=== PATIENT | female | born 1975 | race Caucasian/White ===

== ENCOUNTER 2017-01-06 18:30 | Emergency (ER) | payer SELFPAY ==
[~2017-01-06] VITALS: Ht 152.4 cm; Wt 47.6 kg
--- NOTE | 2017-01-06 19:04 | ED.ADGEN ---
Adult General HPI HPI Patient is a 41-year-old woman, with a history of mitral valve prolapse, palpitations, who presents to the emergency department with complaint of palpitations, generalized weakness, near-syncope, chest pressure intermittently over the past week and half. Patient states that she was last seen by her new grad rn about 4 years ago. She states she is prescribed propranolol, and told to take it up to 3 times daily if needed for her symptoms. She states that she has not been taking his medication regularly the last time she filled the prescription was in . She she did take some of her medication yesterday without relief. Patient states that she is expressing lightheadedness and dizziness with standing and with activity, states she is experiencing chest pressure, and a tingling sensation that extends into her arms and into her fingers at times. Some nausea as well, denies any vomiting, abdominal pain, any shortness of breath, states she has had diaphoresis, no belching, no focal weakness, numbness or tingling, no recent travel or surgery, no history of DVT or PE. Patient is a strong family history of valvular issues and of cardiac disease, states that both her mother, grandmother, and sister had valvular issues, and her mother and grandmother both experienced myocardial infarctions in their 40s. Her grandmother at age 50 of an PA. She does not currently have a primary care provider or a new grad rn, does not take any medications on a regular basis. Review of Systems Review of Systems Constitutional: Denies fever or chills [] analyzed weakness. Near-syncope. Eyes: Denies change in visual acuity, redness, or eye pain [] HENT: Denies nasal congestion or sore throat [] Respiratory: Denies cough or shortness of breath [] Cardiovascular: Chest pressure, radiating into her arms, associated with tingling, nausea. GI: Denies abdominal pain, nausea, vomiting, bloody stools or diarrhea [] : Denies dysuria or hematuria [] Musculoskeletal: Denies back pain or joint pain [] Integument: Denies rash or skin lesions [] Neurologic: Denies headache, focal weakness or sensory changes [] Endocrine: Denies polyuria or polydipsia [] Current Medications Current Medications Current Medications Medications (Trade) Dose Ordered Sig/Regine Start Time Stop Time Status Last Admin Dose Admin Aspirin (Tara Aspirin) 325 mg 1X ONCE 7/12/17 19:15 01/06/17 19:16 DC 01/06/17 19:15 325 MG Fentanyl Citrate (Fentanyl 2ml Vial) 25 mcg PRN Q15MIN PRN 01/06/17 19:00 01/07/17 18:59 01/06/17 20:03 25 MCG Ondansetron HCl (Zofran) 4 mg 1X ONCE 01/06/17 20:15 01/06/17 20:16 DC 01/06/17 20:15 4 MG Allergies Allergies Allergies Coded Allergies Type Severity Reaction Last Updated Verified No Known Drug Allergies 01/06/17 No Physical Exam Physical Exam Constitutional: Well developed, well nourished, no acute distress, non-toxic appearance. [] HENT: Normocephalic, atraumatic, bilateral external ears normal, oropharynx moist, no oral exudates, nose normal. [] Eyes: PERRLA, EOMI, conjunctiva normal, no discharge. [] Neck: Normal range of motion, no tenderness, supple, no stridor. [] Cardiovascular:Heart rate regular rhythm, 2 out of 5 murmur, no rubs, no gallops. S1, S2. Lungs & Thorax: Bilateral breath sounds clear to auscultation, no wheezing, rhonchi, rales. No chest or crepitus or tenderness. Unable to reproduce symptoms with palpation. [] Abdomen: Bowel sounds normal, soft, no tenderness, no rebound, rigidity, no guarding, no masses, no pulsatile masses. [] Skin: Warm, dry, no erythema, no rash. [] Back: No tenderness, no CVA tenderness. [] Extremities: No tenderness, no cyanosis, no clubbing, ROM intact, no edema. Negative Homans sign. [] Neurologic: Alert and oriented X 3, normal motor function, normal sensory function, no focal deficits noted. [] Psychologic: Affect normal, judgement normal, mood normal. [] Current Patient Data Vital Signs Vital Signs Date Time Temp Pulse Resp B/P (MAP) Pulse Ox O2 Delivery O2 Flow Rate FiO2 01/06/17 20:03 16 95 Room Air 01/06/17 18:40 98.1 69 Lab Results Laboratory Tests Test 01/06/17 18:45 01/06/17 20:30 White Blood Count 7.4 x10^3/uL (4.0-11.0) Red Blood Count 4.17 x10^6/uL (3.50-5.40) Hemoglobin 13.1 g/dL (12.0-15.5) Hematocrit 38.8 % (36.0-47.0) Mean Corpuscular Volume 93 fL (79-100) Mean Corpuscular Hemoglobin 31 pg (25-35) Mean Corpuscular Hemoglobin Concent 34 g/dL (31-37) Red Cell Distribution Width 12.8 % (11.5-14.5) Platelet Count 251 x10^3/uL (140-400) Neutrophils (%) (Auto) 55 % (31-73) Lymphocytes (%) (Auto) 33 % (24-48) Monocytes (%) (Auto) 9 % (0-9) Eosinophils (%) (Auto) 3 % (0-3) Basophils (%) (Auto) 1 % (0-3) Neutrophils # (Auto) 4.0 x10^3uL (1.8-7.7) Lymphocytes # (Auto) 2.4 x10^3/uL (1.0-4.8) Monocytes # (Auto) 0.7 x10^3/uL (0.0-1.1) Eosinophils # (Auto) 0.2 x10^3/uL (0.0-0.7) Basophils # (Auto) 0.1 x10^3/uL (0.0-0.2) Sodium Level 140 mmol/L (136-145) Potassium Level 3.7 mmol/L (3.5-5.1) Chloride Level 103 mmol/L (98-107) Carbon Dioxide Level 35 mmol/L (21-32) H Anion Gap 2 (6-14) L Blood Urea Nitrogen 12 mg/dL (7-20) Creatinine 0.8 mg/dL (0.6-1.0) Estimated GFR (Cockcroft-Gault) 78.7 BUN/Creatinine Ratio 15 (6-20) Glucose Level 70 mg/dL (70-99) Calcium Level 8.8 mg/dL (8.5-10.1) Magnesium Level 2.0 mg/dL (1.8-2.4) Total Bilirubin 0.4 mg/dL (0.2-1.0) Aspartate Amino Transferase (AST) 16 U/L (15-37) Alanine Aminotransferase (ALT) 22 U/L (14-59) Alkaline Phosphatase 68 U/L (46-116) Troponin I Quantitative < 0.017 ng/mL (0-0.055) EX-Rqo-B-Type Natriuretic Peptide 13 pg/mL (0-124) Total Protein 7.1 g/dL (6.4-8.2) Albumin 3.6 g/dL (3.4-5.0) Albumin/Globulin Ratio 1.0 (1.0-1.7) Lipase 157 U/L (73-393) Urine Collection Type Unknown Urine Color Yellow Urine Clarity Hazy Urine pH 6.5 Urine Specific [place] 1.015 Urine Protein Neg (NEG-TRACE) Urine Glucose (UA) Neg mg/dL (NEG) Urine Ketones (Stick) Neg mg/dL (NEG) Urine Blood Trace (NEG) Urine Nitrite Neg (NEG) Urine Bilirubin Neg (NEG) Urine Urobilinogen Dipstick 0.2 mg/dL (0.2 mg/dL) Urine Leukocyte Esterase Neg (NEG) Urine RBC 1-2 /HPF (0-2) Urine WBC 1-4 /HPF (0-4) Urine Squamous Epithelial Cells Many /LPF Urine Bacteria Few /HPF (0-FEW) Urine Mucus Mod /LPF Urine Opiates Screen Neg (NEG) Urine Methadone Screen Neg (NEG) Urine Barbiturates Neg (NEG) Urine Phencyclidine Screen Neg (NEG) Urine Amphetamine/Methamphetamine Neg (NEG) Urine Benzodiazepines Screen Neg (NEG) Urine Cocaine Screen Neg (NEG) Urine Cannabinoids Screen Neg (NEG) Urine Ethyl Alcohol Neg (NEG) EKG EKG EC: Sinus rhythm, heart rate 61 bpm, upright axis, QTC of 382, MA 172, QRS of 80, no ST elevations or depressions, noted acute ST abnormalities. No prior for comparison. As interpreted by me. ECG: Sinus rhythm, heart rate 51 beats minute, upright axis, QTC of 409, MA of 182, QRS of 84, patient noted to have ST elevations of possible 1 mm noted in lead 2, otherwise no changes noted from patient's previous ECG, patient experienced any chest pain at this time, complaining of nausea abnormal ECG, does not meet STEMI criteria. As interpreted by me. [] Radiology/Procedures Radiology/Procedures Chest x-ray: One view: Patient with normal cardiopulmonary silhouette, no infiltrates, no effusions, no pneumothorax, no soft tissue or bony abnormalities identified. As interpreted by me. [] Course & Med Decision Making Course & Med Decision Making Pertinent Labs and Imaging studies reviewed. (See chart for details) Patient not experiencing palpitations at time of evaluation the ED, states the chest pressure and lightheadedness, have significantly improved, no pain at this time. Aspirin 325 milligrams administered without issue. Initial ECG is unremarkable, patient developed episode of sweating in the ED, with some lightheadedness, repeat ECG revised reveals mild elevations in lead 2, no other changes. Troponin is negative, laboratory studies reveal no concerning findings. Findings as above discussed with JAIR Shah, on-call for Dr. Meng cardiology, in light of the patient's history, and concerning family history for significant CAD and fell to the issues, transfer to [facility] is appropriate versus staying at [facility] due to resources available at [facility]. I did discuss this with patient and at bedside, patient is agreeable for transfer to [facility] for additional evaluation with cardiology team. Transfer paperwork was completed. Patient accepted to the service of Dr. Macias of internal medicine as a full admission, patient remained stable on the monitor in sinus rhythm, comfortable, awaiting transfer. Final Impression Final Impression [] Problems: Dragon Disclaimer Dragon Disclaimer This electronic medical record was generated, in whole or in part, using a voice recognition dictation system. Departure: Impression: Primary Impression: Heart palpitations Additional Impression: Chest pain Disposition: XFER OTHER Condition: STABLE GURMEET WHITMAN DO Jan 06, 2017 19:04
[2017-01-06] MEDS: fentaNYL PF 100 MCG/2 ML VIAL IV PRN ×2 (19:10→20:03)
[2017-01-06 19:15] LABS: BASO # 0.1 x10^3/uL (0.0-0.2); BASO % 1 % (0-3); EOS # 0.2 x10^3/uL (0.0-0.7); EOS % 3 % (0-3); HEMATOCRIT 38.8 % (36.0-47.0); HEMOGLOBIN 13.1 g/dL (12.0-15.5); LYMPH # 2.4 x10^3/uL (1.0-4.8); LYMPH % 33 % (24-48); MEAN CORPUSCULAR HEMOGLOBIN 31 pg (25-35); MEAN CORPUSCULAR HGB CONC 34 g/dL (31-37); MEAN CORPUSCULAR VOLUME 93 fL (79-100); MONO # 0.7 x10^3/uL (0.0-1.1); MONO % 9 % (0-9); NEUT % 55 % (31-73); PLATELET COUNT 251 x10^3/uL (140-400); RED BLOOD COUNT 4.17 x10^6/uL (3.50-5.40); RED CELL DISTRIBUTION WIDTH 12.8 % (11.5-14.5); WHITE BLOOD COUNT 7.4 x10^3/uL (4.0-11.0)
[2017-01-06] MEDS ORDERED: ASPIRIN 325 MG TABLET PO ONE (19:15)
[2017-01-06] MEDS ORDERED: ONDANSETRON PF 4 MG/2 ML VIAL. IV ONE ×3 (19:15→23:45)
[2017-01-06 19:26] LABS: ALBUMIN 3.6 g/dL (3.4-5.0); CALCIUM 8.8 mg/dL (8.5-10.1); CREATININE 0.8 mg/dL (0.6-1.0); GFR 78.7; POTASSIUM 3.7 mmol/L (3.5-5.1); TOTAL BILIRUBIN 0.4 mg/dL (0.2-1.0); TOTAL PROTEIN 7.1 g/dL (6.4-8.2)
[2017-01-06 20:50] LABS: AMPHETAMINE/METHAMPHETAMINE NEG (NEG); BARBITURATES NEG (NEG); BENZODIAZEPINES NEG (NEG); CANNABINOIDS NEG (NEG); COCAINE NEG (NEG); METHADONE NEG (NEG); OPIATES NEG (NEG); PHENCYCLIDINE NEG (NEG)
[2017-01-06 20:59] LABS: BILIRUBIN,URINE NEG (NEG); CLARITY,URINE HAZY; COLOR,URINE YELLOW; GLUCOSE,URINE NEG (NEG); NITRITE,URINE NEG (NEG); UROBILINOGEN,URINE 0.2 mg/dL (0.2 mg/dL)
[2017-01-06 21:00] LABS: BACTERIA,URINE FEW /HPF (0-FEW); SQUAMOUS EPITHELIAL CELL,UR MANY /LPF
[2017-01-06 22:12] VITALS: BP 112/68
--- NOTE | 2017-01-06 22:49 | EKG ---
[address] [address] Test Date: 2017-01-06 Test Time: 18:42:41 Pat Name: SIVA FONG Department: Room: Gender: F Automation Manager: : 1975 Requested By: GURMEET WHITMAN Order Number: [id number] Reading MD: Measurements Intervals [place] Rate: 61 P: 58 [place]: 172 QRS: 41 QRSD: 80 T: 31 QT: 378 QTc: 382 Interpretive Statements SINUS RHYTHM NORMAL ECG RI6.01 Unconfirmed report No previous ECG available for comparison
--- NOTE | 2017-01-06 22:49 | EKG ---
[facility] ED [facility] [address] [place] [address] Test Date: 2017-01-06 Test Time: 19:58:27 Pat Name: SIVA FONG Department: Room: Gender: F Contact Center Engineer: : 1975 Requested By: GURMEET WHITMAN Order Number: [id number] Reading MD: Measurements Intervals [place] Rate: 51 P: 53 [place]: 182 QRS: 51 QRSD: 84 T: 34 QT: 442 QTc: 409 Interpretive Statements SINUS RHYTHM NON SPECIFIC ST-T ABNORMALITY (ELEVATION) OTHERWISE NORMAL ECG RI6.01 Unconfirmed report No previous ECG available for comparison
--- NOTE | 2017-01-07 08:02 | RAD ---
Chest radiograph 01/06/2017 at 1909 hours Indication: Heart palpitations Comparison: None available Technique: Portable upright view of the chest is provided. Findings: Cardiomediastinal silhouette is within normal limits. No pleural effusions, pulmonary vascular congestion or pneumothorax. The lungs are clear. Osseous structures are normal. Cholecystectomy clips are identified in the right upper quadrant. Impression: No acute cardiopulmonary process.
== END 2017-01-06 23:35 | disposition short-term general hospital (02) ==
LOC: ER 18:30
DX: R07.89 Other chest pain (principal); R00.2 Palpitations; I34.1 Nonrheumatic mitral (valve) prolapse
CPT/HCPCS: 36415; 71010; 80053; 80305; 80320; 81001; 83690; 83735; 83880; 84443; 84484; 85027; 93005; 96374; 96375; 96376; 99285; J2405; J3010; G0481

== ENCOUNTER 2021-01-03 03:56 | Observation (INO) | payer OTHER ==
[~2021-01-03] VITALS: Ht 152.4 cm; Wt 48.0 kg
--- NOTE | 2021-01-03 04:10 | PHYS DOC ---
Past History Past Medical History: Other Past Surgical History: Cholecystectomy, Tubal ligation Alcohol Use: None Drug Use: None General Adult HPI: HPI: ".. I went to bed fine.. but I got up about 3 to go to the bathroom.. and I felt like my hands were numb.. my mouth was numb.. and I got concerned.. I was to see Dr. El.. the next couple days ...because it feels like my feet have been swellling.." Patient is a 45 year old female who presents with above hx and complaints numbness of mouth in both hands and swelling in both feet. Patient states has had symptoms for last couple days, but symptoms seem worse tonight when she got up to go the bathroom. No recent travel. Patient is not smoke. Patient denies any illicit drug use. Patient does have history of aortic and mitral valve prolapse. Has seen hand decorator in the past. But does not remember his name. Patient follows with Dr. El. No history of trauma. No history of immunosuppression. Review of Systems: Review of Systems: Constitutional: Denies fever or chills Eyes: Denies change in visual acuity HENT: Complains of melena Respiratory: Denies cough or shortness of breath Cardiovascular: Planes of chest discomfort in bilateral feet edema GI: Denies abdominal pain, nausea, vomiting, bloody stools or diarrhea : Denies dysuria Musculoskeletal: Denies back pain or joint pain Integument: Denies rash Neurologic: Complains of mild headache, and bilateral hand numbness Endocrine: Denies polyuria or polydipsia Lymphatic: Denies swollen glands Psychiatric: Denies depression or anxiety Family History: Family History: Noncontributory presentation Current Medications: Current Meds: See nursing for home meds Allergies: Allergies: Allergies Coded Allergies Type Severity Reaction Last Updated Verified No Known Drug Allergies 01/06/17 No Physical Exam: PE: Constitutional: moderate acute distress, non-toxic appearance. [] HENT: Normocephalic, atraumatic, bilateral external ears normal, oropharynx moist, no oral exudates, nose normal. [] Eyes: PERRLA, EOMI, conjunctiva normal, no discharge. [] Neck: Normal range of motion, no tenderness, supple, no stridor. No bruits appreciated Cardiovascular:Heart rate regular rhythm. Aortic and mitral flow murmur [] Lungs & Thorax: Bilateral breath sounds equal at apex auscultation [] Abdomen: Bowel sounds normal, soft, no tenderness, no masses, no pulsatile masses. [] Skin: Warm, dry, no erythema, no rash. Tattoos Back: No tenderness, no CVA tenderness. [] Extremities: No tenderness, no cyanosis, no clubbing, ROM intact, no edema. [] Neurologic: Alert and oriented X 3, normal motor function, normal sensory function, no focal deficits noted. [] DTRs +2 patella brachial. Food Checker equal. No drift. Psychologic: Affect anxious, judgement normal, mood normal. [] Current Patient Data: Labs: Laboratory Tests Test 01/03/21 04:03 Glucose (Fingerstick) 113 mg/dL (70-99) H EKG: EKG: My interpretation EKG shows a sinus rhythm at 69 bpm. No findings acute STEMI of contralateral changes. Time of EKGs for [] Radiology/Procedures: Radiology/Procedures: [][address] [address] IMAGING REPORT Signed PATIENT: SIVA FONG ACCOUNT: [id number] : 1975 LOCATION: [address] [place] [address] AGE: 45 SEX: F EXAM STATUS: ADM IN ORD. PHYSICIAN: BRANDON QUEVEDO MD REASON: cp PROCEDURE: PORTABLE CHEST 1V EXAM: CHEST 1 VIEW History: Chest pain COMPARISON: None available. TECHNIQUE: Single portable radiograph of the chest FINDINGS: The cardiac silhouette is unremarkable. The lungs are clear bilaterally. The costophrenic sulci are clear and well demarcated. IMPRESSION: No radiographic evidence of an acute cardiopulmonary process. Electronically signed by: Jae Azul MD (01/03/2021 6:16 AM) [id number] DICTATED AND SIGNED BY: JAE AZUL MD DATE: 01/03/21 0616 CC: VIJI EL MD; BRANDON QUEVEDO MD ~MTH0 0 IMAGING REPORT Signed PATIENT: SIVA FONG ACCOUNT: [id number] : 1975 LOCATION: ER AGE: 45 SEX: F EXAM STATUS: REG ER ORD. PHYSICIAN: BRANDON QUEVEDO MD REASON: numbness hands, mouth numb PROCEDURE: CT HEAD WO CONTRAST CT HEAD INDICATION: Numbness: COMPARISON: None Available. Exposure: One or more of the following individualized dose reduction techniques were utilized for this examination: 1. Automated exposure control 2. Adjustment of the mA and/or kV according to patient size 3. Use of iterative reconstruction technique TECHNIQUE: 5 mm contiguous axial images were obtained from the skull base to the vertex in both bone and soft tissue algorithm. FINDINGS: No abnormal attenuation within the brain parenchyma. No evidence of acute intracranial hemorrhage. No extra-axial fluid collections. No mass effect or midline shift. Ventricular size is appropriate. Basal cis terns are patent. No fractures identified.Dockery-white differentiation is preserved.Globes and orbits are within normal limits. Paranasal sinuses and mastoid air cells are clear. IMPRESSION: Unremarkable CT examination of the head without contrast, as above. Specifically, no evidence of an acute intracranial abnormality. Electronically signed by: Jae Azul MD (01/03/2021 5:15 AM) [id number] DICTATED AND SIGNED BY: JAE AZUL MD DATE: 01/03/21511 CC: VIJI EL MD; BRANODN QUEVEDO MD ~MTH0 0 Heart Score: C/O Chest Pain: Yes HEART Score for Chest Pain: HEART Score for Chest Pain Response (Comments) Value History Slighlty/Non-Suspicious 0 ECG Normal 0 Age >45 - < 65 1 Troponin < Normal Limit 0 Total 1 Risk Factors: Risk Factors: DM, Current or recent (<one month) smoker, HTN, HLP, family history of CAD, obesity. Risk Scores: Score 0 - 3: 2.5% MACE over next 6 weeks - Discharge Home Score 4 - 6: 20.3% MACE over next 6 weeks - Admit for Clinical Observation Score 7 - 10: 72.7% MACE over next 6 weeks - Early Invasive Strategies Course & Med Decision Making: Course & Med Decision Making Pertinent Labs and Imaging studies reviewed. (See chart for details) Discussed presentation, testing and t.x plan with Dr. El. Impression: 1. Numbness mouth and hands 2. Dizziness 3. Murmur mitral and aorta [] Dragon Disclaimer: Dragon Disclaimer: This electronic medical record was generated, in whole or in part, using a voice recognition dictation system. Departure Departure: Referrals: VIJI EL MD (PCP) BRANDON QUEVEDO MD Jan 03, 2021 04:10
[2021-01-03] MEDS ORDERED: IV RINGERS SOLUTION,LACTATED 1,000 ML IV SCH (04:30)
[2021-01-03 04:39] LABS: BASO # 0.1 x10^3/uL (0.0-0.2); BASO % 1 % (0-3); EOS # 0.1 x10^3/uL (0.0-0.7); EOS % 3 % (0-3); HEMATOCRIT 40.7 % (36.0-47.0); HEMOGLOBIN 13.8 g/dL (12.0-15.5); LYMPH # 2.5 x10^3/uL (1.0-4.8); LYMPH % 49 % (24-48); MEAN CORPUSCULAR HEMOGLOBIN 32 pg (25-35); MEAN CORPUSCULAR HGB CONC 34 g/dL (31-37); MEAN CORPUSCULAR VOLUME 95 fL (79-100); MONO # 0.4 x10^3/uL (0.0-1.1); MONO % 8 % (0-9); NEUT # 2.1 x10^3uL (1.8-7.7); NEUT % 40 % (31-73); PLATELET COUNT 289 x10^3/uL (140-400); RED BLOOD COUNT 4.31 x10^6/uL (3.50-5.40); RED CELL DISTRIBUTION WIDTH 13.1 % (11.5-14.5); WHITE BLOOD COUNT 5.2 x10^3/uL (4.0-11.0)
[2021-01-03 04:43] LABS: CALCIUM 9.1 mg/dL (8.5-10.1); CREATININE 0.8 mg/dL (0.6-1.0); GFR 77.2
[2021-01-03 04:56] LABS: ALBUMIN 4.2 g/dL (3.4-5.0); DIRECT BILIRUBIN 0.2 mg/dL (0.0-0.2); MAGNESIUM 1.9 mg/dL (1.8-2.4); TOTAL BILIRUBIN 0.9 mg/dL (0.2-1.0); TOTAL PROTEIN 6.8 g/dL (6.4-8.2)
--- NOTE | 2021-01-03 05:17 | RAD ---
CT HEAD INDICATION: Numbness: COMPARISON: None Available. Exposure: One or more of the following individualized dose reduction techniques were utilized for thi s examination: 1. Automated exposure control 2. Adjustment of the mA and/or kV according to patient size 3. Use of iterative reconstruction technique TECHNIQUE: 5 mm contiguous axial images were obtained from the skull base to the vertex in both bone and soft tissue algorithm. FINDINGS: No abnormal attenuation within the brain parenchyma. No evidence of acute intracranial hemorrhage. No extra-axial fluid collections. No mass effect or midline shift. Ventricular size is appropriate. Basal cisterns are patent. No fractures identified.Dockery-white differentiation is preserved.Globes and orbits are within normal l imits. Paranasal sinuses and mastoid air cells are clear. IMPRESSION: Unremarkable CT examination of the head without contrast, as above. Specifically, no evidence of an a cute intracranial abnormality. Electronically signed by: Jae Azlu MD (01/03/2021 5:15 AM) [id number]
[2021-01-03] MEDS ORDERED: ONDANSETRON PF 4 MG/2 ML VIAL. IVP PRN (05:30)
[2021-01-03] MEDS ORDERED: ACETAMINOPHEN 325 MG TABLET PO PRN (05:30)
--- NOTE | 2021-01-03 05:31 | EKG ---
[address] [address] Test Date: 2021-01-03 Test Time: 04:09:52 Pat Name: SIVA FONG Department: Room: Gender: F Spindraw Operator: : 1975 Requested By: BRANDON QUEVEDO Order Number: [id number] Reading MD: Measurements Intervals [place] Rate: 69 P: 58 [place]: 162 QRS: 55 QRSD: 82 T: 26 QT: 358 QTc: 389 Interpretive Statements SINUS RHYTHM NORMAL ECG RI6.02 No previous ECG available for comparison
[2021-01-03] MEDS ORDERED: ASPIRIN CHEWABLE 81 MG TABLET. ONE (05:33)
[2021-01-03] MEDS: ASPIRIN CHEWABLE 81 MG TABLET. PO SCH ×2 (05:35→10:12)
[2021-01-03 05:54] LABS: BARBITURATES NEG (NEG); BENZODIAZEPINES NEG (NEG); CANNABINOIDS NEG (NEG); COCAINE NEG (NEG); METHADONE NEG (NEG); OPIATES NEG (NEG); PHENCYCLIDINE NEG (NEG)
[2021-01-03 05:55] LABS: AMPHETAMINE/METHAMPHETAMINE NEG (NEG)
[2021-01-03 05:59] LABS: BILIRUBIN,URINE NEG (NEG); CLARITY,URINE HAZY; COLOR,URINE YELLOW; GLUCOSE,URINE NEG (NEG)
[2021-01-03 06:00] LABS: BACTERIA,URINE 0 /HPF (0-FEW); NITRITE,URINE NEG (NEG); RBC,URINE OCC /HPF (0-2); SQUAMOUS EPITHELIAL CELL,UR MOD /LPF; WBC,URINE OCC /HPF (0-4)
--- NOTE | 2021-01-03 06:19 | RAD ---
EXAM: CHEST 1 VIEW History: Chest pain COMPARISON: None available. TECHNIQUE: Single portable radiograph of the chest FINDINGS: The cardiac silhouette is unremarkable. The lungs are clear bilaterally. The costophrenic sulci are clear and well demarcated. IMPRESSION: No radiographic evidence of an acute cardiopulmonary process. Electronically signed by: Jae Azul MD (01/03/2021 6:16 AM) [id number]
[2021-01-03 06:43] VITALS: BP 151/83
--- NOTE | 2021-01-03 06:43 | NUR ---
PT ADMITTED TO [facility] ACCOMPANIED BY NURSING REFUSE LABORER. PT AMBULATED FROM GURNEY TO BED W/O ASSISTANCE FROM STAFF. PT A/O X4. VS OBTAINED. CALL LIGHT IN REACH WILL CONTINUE TO MONITOR.
[2021-01-03] MEDS ORDERED: ESTR1PAT27 TD (08:00)
--- NOTE | 2021-01-03 08:45 | RAD ---
INDICATION: Reason: HTN, DIZZINESS, LIGHTHEADEDNESS, WEAKNESS, NUMBNESS, HEADACHES / Spl. Instruction s: / History: COMPARISON: None. TECHNIQUE: Color, grayscale and doppler ultrasound images obtained of the carotid system bilaterally. Percent stenosis is estimated using criteria that correlates with NASCET methodology. FINDINGS: Peak systolic velocities are as follows in cm/s: Right Carotid System: CCA: 94 ICA: 121 ICA/CCA Ratio 1.3 Left Carotid System: CCA: 113 ICA: 122 ICA/CCA Ratio 1.1 Mildly elevated velocities in bilateral internal carotid arteries diastolic measuring up to 48 on the right and 53 on the left Vertebral arteries are antegrade bilaterally. Mild scattered plaque and intimal thickening. IMPRESSION: * No hemodynamically significant stenosis of the internal carotid arteries bilaterally. Electronically signed by: Raulito Araujo MD (01/03/2021 8:43 AM) [id number]
[2021-01-03] MEDS ORDERED: SCOPOLAMINE 1.5MG PATCH. TD SCH (09:00)
[2021-01-03] MEDS ORDERED: ESTRADIOL TD SCH (09:00)
[2021-01-03] MEDS ORDERED: ASPI-630 PO (11:29)
[2021-01-03 11:31] VITALS: BP 106/65
--- NOTE | 2021-01-03 12:25 | NUR ---
Discharge note Patient and spouse read discharge instructions and given discharge packet. All patient questions answered in full. Invasive line discontinued per this nurse. No other acute concerns.
--- NOTE | 2021-01-03 12:40 | HP ---
ADMIT DATE: 01/03/2021 HISTORY OF PRESENT ILLNESS: A 45-year-old female in her usual state of health. Does have a history of mitral valve prolapse as well as some aortic stenosis. Apparently had some episodes this morning, at 3:00 in the morning with her tongue swelling, numbness to the left side of her face, trouble speaking and generalized weakness. It was thought the patient might be having a TIA versus stroke in evolution. She came in through the emergency room where workup at that time was negative. The patient does have an estrogen patch and apparently has had as noted some essential hypertension as well as these estrogen patches that might increase her risk for TIA versus a stroke in evolution. She was admitted for further evaluation of such. PAST MEDICAL HISTORY: The patient's past medical history outside of her valvular problems she has had apparently blockages of her coronary artery disease, migraine headaches. She has apparently had 2 heart attacks in the past, heart catheterization and aortic stenosis. FAMILY HISTORY: Positive for ovarian cancer, lung cancer and heart attacks in the mother and breast cancer in the mother. ALLERGIES: No known allergies. MEDICATIONS: Estrogen patch. SOCIAL HISTORY: She denies smoking, alcohol or drug use. Full code. REVIEW OF SYSTEMS: Outside of the tongue swelling feeling thick and numbness and tingling to her face, the patient denies blurred vision, double vision, headaches, did have some chest pain, however, this morning with this, also denied any shortness of breath, abdominal pain. Denies any nausea, vomiting, melena, hematochezia, hematemesis and neurologically outside of what was mentioned above, no other symptoms except those as indicated above as possible problems. PHYSICAL EXAMINATION: GENERAL: The patient is a pleasant white female. VITAL SIGNS: Blood pressure 150/80, respiratory rate 16, pulse 60-90, afebrile, 98 on room air. HEENT: The patient's head right now symmetrical, atraumatic, normocephalic. Eyes: PERRL with conjugate. Mouth and throat normal. NECK: Supple. LUNGS: Clear. CARDIOVASCULAR: Regular sinus rhythm. ABDOMEN: Soft, nontender. EXTREMITIES: No clubbing, cyanosis, or edema. NEUROLOGIC: Speech fluent, spontaneous, appropriate. Cranial nerves II-XII grossly intact. Good muscle strength. Reflexes symmetrical both left and right, up and down. The patient otherwise is stable there. LABORATORY DATA: The patient's CBC was all within normal limits except for slight elevation of lymphocytes of 49%. The patient's blood sugar slightly elevated at . Cardiac enzymes so far negative. Sodium, potassium, BUN, creatinine all within range. IMPRESSION: Transient ischemic attack versus stroke in evolution. Continue to monitor her on that and make further evaluation per those results. CADY/SAMUEL/AURORA DR: Mary TID: [id number]
== END 2021-01-03 12:00 | disposition home or self-care (01) ==
LOC: ER 03:56 → INTOOBSV 05:21 → 1 SOUTH 05:21
PROVIDERS: ADMIT Family Medicine; ATTEND Family Medicine
DX: R20.0 Anesthesia of skin (principal); R42 Dizziness and giddiness; I35.8 Other nonrheumatic aortic valve disorders; I34.0 Nonrheumatic mitral (valve) insufficiency; I25.10 Atherosclerotic heart disease of native coronary artery without angina pectoris; I25.2 Old myocardial infarction; G43.909 Migraine, unspecified, not intractable, without status migrainosus; Z90.49 Acquired absence of other specified parts of digestive tract; Z98.51 Tubal ligation status; Z95.1 Presence of aortocoronary bypass graft; Z79.899 Other long term (current) drug therapy
CPT/HCPCS: 36415; 70450; 71045; 80048; 80076; 80307; 81001; 82550; 82947; 83690; 83735; 83880; 84443; 84484; 85025; 85379; 85610; 85730; 86140; 93005; 93880; 99285; G0378; J7120; G0379